=== PATIENT | female | born 1950 | race Caucasian/White ===

== ENCOUNTER 2017-12-07 09:00 | Outpatient (CLI) | payer BC, MEDICARE | END 2017-12-07 09:01 | disposition home or self-care (01) | LOC: BICMAMMO 09:00 | PROVIDERS: ATTEND Internal Medicine | DX: Z12.31 Encounter for screening mammogram for malignant neoplasm of breast (principal); Z80.3 Family history of malignant neoplasm of breast | CPT/HCPCS: 77063; 77067 ==

== ENCOUNTER 2018-05-10 11:02 | Outpatient (CLI) | payer MEDICARE ==
--- NOTE | 2018-05-10 14:50 | PET ---
PET CT: HISTORY: 67-year-old female with lung cancer diagnosed 11 years ago. Status post right lobectomy four chemo tr eatments. Left adrenal gland nodule on CT scan of 04/19/18 from [facility]. TECHNIQUE: PET scanning with CT attenuation correction was performed from the base of the brain through the prox imal thighs following the intravenous administration of 12.5 mCi [id number] in the left antecubital mathew a. Imaging was performed after an uptake interval of 54 minutes. COMPARISON: PET CT dated 04/26/08. CORRELATION: CT of the abdomen dated 04/19/18 from [facility]. FINDINGS: No lillian hypermetabolism is seen in the neck, chest, abdomen, or pelvis. No hypermetabolic pulmonary nodules, liver, adrenal, or skeletal lesions are identified. There is physiologic activity in the GI and tract, and the visualized portions of the brain. The C T scan used for attenuation correction demonstrates no evidence of pleural effusions or ascites. IMPRESSION: No evidence of tumor recurrence or metastatic disease. POS: [facility]
== END 2018-05-10 11:03 | disposition home or self-care (01) ==
LOC: PET 11:02
PROVIDERS: ATTEND Internal Medicine
DX: D44.12 Neoplasm of uncertain behavior of left adrenal gland (principal); Z85.118 Personal history of other malignant neoplasm of bronchus and lung
CPT/HCPCS: 78815; A9552

== ENCOUNTER 2018-12-17 09:32 | Outpatient (CLI) | payer MEDICARE ==
--- NOTE | 2018-12-17 10:08 | MMO ---
Bilateral MAMMO Bilat Screen [facility]. CLINICAL HISTORY: Patient is 68 years old and is seen for screening. The patient has the following family history of breast cancer: mother, at age 80 and maternal aunt, at age 79, AND COLON CANCER. The patient has a history of lung cancer. VIEWS: The views performed were: bilateral craniocaudal with tomosynthesis and bilateral mediolateral oblique with tomosynthesis. FILMS COMPARED: The present examination has been compared to prior imaging studies performed at [facility] on 09/04/2008, 09/17/2009, 09/27/2010, 09/28/2011, 11/05/2012, 11/19/2013, 11/21/2014, 11/25/2015, 11/30/2016 and 12/07/2017, and at [facility] on 09/22/2006 and 09/05/2007. MAMMOGRAM FINDINGS: There are scattered fibroglandular densities. There are benign appearing calcifications seen in both breasts. There are no suspicious masses, suspicious calcifications, or new areas of architectural distortion. IMPRESSION: THERE IS NO MAMMOGRAPHIC EVIDENCE OF MALIGNANCY. A ROUTINE FOLLOW-UP MAMMOGRAM IN 1 YEAR IS RECOMMENDED. THE RESULTS OF THIS EXAM WERE SENT TO THE PATIENT. ACR BI-RADS Category 2 - Benign finding MAMMOGRAPHY NOTE: 1. A negative mammogram report should not delay a biopsy if a dominant of clinically suspicious mass is present. 2. Approximately 10% to 15% of breast cancers are not detected by mammography. 3. Adenosis and dense breasts may obscure an underlying neoplasm.
== END 2018-12-17 09:33 | disposition home or self-care (01) ==
LOC: BICMAMMO 09:32
PROVIDERS: ATTEND Internal Medicine
DX: Z12.31 Encounter for screening mammogram for malignant neoplasm of breast (principal); Z80.3 Family history of malignant neoplasm of breast; Z85.118 Personal history of other malignant neoplasm of bronchus and lung
CPT/HCPCS: 77063; 77067